=== PATIENT | male | born 1945 | race Caucasian/White ===

== ENCOUNTER 2018-01-22 11:08 | Inpatient (IN) ==
[2018-01-22] MEDS ORDERED: Morphine Sulfate Inj 2 MG/ML Vial IV.PUSH ONE (12:11)
[2018-01-22 12:46] LABS: Baso % (Auto) 0.3 % (0.0-2.0); Eos # (Auto) 0.1 th/mm3 (0.0-0.4); Eos % (Auto) 2.6 % (0.0-4.0); Hematocrit 44.8 % (39.0-51.0); Lymph # (Auto) 1.9 th/mm3 (1.0-4.8); Mean Corpuscular HGB Conc 35.7 % (32.0-36.0); Mean Corpuscular Hemoglobin 34.1 pg (27.0-34.0); Mean Corpuscular Volume 95.7 fL (80.0-100.0); Mean Platelet Volume 9.1 fL (7.0-11.0); Mono # (Auto) 0.8 th/mm3 (0.0-0.9); Mono % (Auto) 15.1 % (0.0-8.0); Neut # (Auto) 2.2 th/mm3 (1.8-7.7); Platelet Count 188 th/mm3 (150-450); Red Blood Count 4.68 mil/mm3 (4.50-5.90); Red Cell Distribution Width 12.1 % (11.6-17.2)
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
[2018-01-22 12:54] LABS: Prothrombin Time 10.5 sec (9.8-11.6)
--- NOTE | 2018-01-22 13:01 | XR ---
EXAM DATE: 01/22/2018 11:32 AM EDT AGE/SEX: 72 years / Male INDICATIONS: Left side chest pain. CLINICAL DATA: This is the patient's initial encounter. Patient reports that signs and symptoms have been present for 1 day and indicates a pain score of 4/10. MEDICAL/SURGICAL HISTORY: None. None. COMPARISON: No prior exams available for comparison. FINDINGS: There is fracture of the left fifth posterior rib which is minimally distracted. No destructive lesio ns or areas of periosteal thickening are seen. Expiratory view of the chest is negative for pneumoth orax. The mediastinal structures are midline. CONCLUSION: Minimally distracted fracture of left posterior fifth rib. Electronically signed by: Yonas Montiel MD 01/22/2018 12:59 PM EDT
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
[2018-01-22 13:07] LABS: Calcium 8.9 mg/dL (8.5-10.1); Carbon Dioxide 28.1 meq/L (21.0-32.0); Potassium 3.7 meq/L (3.5-5.1)
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
[2018-01-22] MEDS ORDERED: Morphine Sulfate Inj 2 MG/ML Vial IV.PUSH PRN (16:00)
[2018-01-22] MEDS ORDERED: Lidocaine 5% Patch T-DERMAL SCH (16:00)
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
[2018-01-22] MEDS ORDERED: ceFAZolin 2 GM Premix Inj 2 GM/50 ML PIGGYBACK IV.SIG ONE (17:34)
[2018-01-22] MEDS ORDERED: Glycopyrrolate Inj 1 MG/5 ML Syringe IV.PUSH ONE (17:51)
[2018-01-22] MEDS ORDERED: Lidocaine PF 1% Inj 5 ML Syringe OTHER ONE (17:51)
[2018-01-22] MEDS ORDERED: Neostigmine Inj 5 MG/5 ML Syringe IV.PUSH ONE (17:51)
[2018-01-22] MEDS ORDERED: *Meperidine Inj 25 MG/ML Vial PERIprocedural Use ONLY ONE (19:30)
[2018-01-22] MEDS ORDERED: Morphine Inj 4 MG/ML Vial ONE (19:34)
[2018-01-22] MEDS ORDERED: fentaNYL Citrate Inj 100 MCG/2 ML Ampul ONE ×2 (19:34)
--- NOTE | 2018-01-22 19:36 | P.BOP ---
- Preoperative Diagnosis (1) Tibial plateau fracture, left Date of procedure: 01/22/18 Procedure: spanning external fixation left tibia fracture Implants: synthes Anesthesia: GETA Surgeon: Bushra Casey MD Estimated blood loss (mL): 20 Pathology: none sent Condition: stable Disposition: PACU
[2018-01-22] MEDS: Sod Chloride 0.9% Inj 1,000 ML IV.CONT SCH (20:00)
[2018-01-22] MEDS: Lidocaine 5% Patch T-DERMAL SCH (20:32)
[2018-01-22] MEDS: Methocarbamol 500 MG Tablet PO SCH (20:33)
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
[2018-01-22] MEDS: Famotidine 20 MG Tablet PO SCH (22:24)
[2018-01-22] MEDS: Docusate Sodium 100 MG Capsule PO SCH (22:24)
[2018-01-23] MEDS: Methocarbamol 500 MG Tablet PO SCH ×3 (01:59→17:10)
[2018-01-23] MEDS: Sod Chloride 0.9% Inj 1,000 ML IV.CONT SCH (03:40)
[2018-01-23] MEDS ORDERED: Chlorhexidine Gluconate 2% 1 Pack (2 Cloths) TOPICAL PRN (04:00)
[2018-01-23] MEDS ORDERED: Chlorhexidine Gluconate 2% 1 Pack (2 Cloths) TOPICAL SCH (04:00)
[2018-01-23 04:37] LABS: Baso % (Auto) 0.1 % (0.0-2.0); Hematocrit 38.2 % (39.0-51.0); Hemoglobin 13.1 gm/dL (13.0-17.0); Lymph # (Auto) 0.5 th/mm3 (1.0-4.8); Mean Corpuscular HGB Conc 34.4 % (32.0-36.0); Mean Corpuscular Hemoglobin 33.5 pg (27.0-34.0); Mean Corpuscular Volume 97.3 fL (80.0-100.0); Mean Platelet Volume 9.2 fL (7.0-11.0); Mono # (Auto) 0.7 th/mm3 (0.0-0.9); Neut # (Auto) 7.2 th/mm3 (1.8-7.7); Neut % (Auto) 85.9 % (16.0-70.0); Platelet Count 188 th/mm3 (150-450); Red Blood Count 3.93 mil/mm3 (4.50-5.90); Red Cell Distribution Width 12.7 % (11.6-17.2); White Blood Count 8.4 th/mm3 (4.0-11.0)
[2018-01-23 05:28] LABS: ABG PCO2 38 mmHg (38-42); ABG PO2 74 mmHg (61-120)
--- NOTE | 2018-01-23 06:16 | XR ---
EXAM DATE: 01/23/2018 6:00 AM EDT AGE/SEX: 72 years / Male INDICATIONS: Follow up trauma, pain left chest and ribs CLINICAL DATA: This is the patient's initial encounter. Patient reports that signs and symptoms have been present for 2 days and indicates a pain score of 4/10. MEDICAL/SURGICAL HISTORY: . left 5th rib fracture, tib/fib fracture Non-responsive. COMPARISON: No prior exams available for comparison. FINDINGS: The heart size is normal. There is minimal increased density at the left base. The right lung is sara r. There appears to be very minimal left pneumothorax measuring up to 5 mm in thickness. Mediastinal shift is not seen. There is a fifth left rib fracture. Left-sided rib fractures are seen. CONCLUSION: Minimal left pneumothorax. Minimal consolidation/contusion or atelectasis at the left base. Fifth left rib fracture.. Electronically signed by: Mekhi Schmid MD 01/23/2018 6:15 AM EDT
--- NOTE | 2018-01-23 06:41 | P.PNOP ---
Subjective Interval history: POD 1 s/p exfix left bicondylar tibial plateau doing well. pain controlled. no complaints. Physical Exam Vital signs: Vital Signs 01/22/18 13:12 01/22/18 15:41 01/22/18 15:56 Temperature 97.8 F Pulse Rate 70 73 75 Respiratory Rate 17 16 21 Blood Pressure 154/81 H 98/62 L 123/68 Pulse Oximetry 98 96 97 01/22/18 19:25 01/22/18 19:45 01/22/18 20:00 Temperature 98.4 F 97.9 F Pulse Rate 85 93 H 89 Respiratory Rate 16 16 18 Blood Pressure 135/65 148/71 H 147/77 H Pulse Oximetry 94 L 95 93 L 01/22/18 20:15 01/22/18 20:30 01/23/18 00:00 Temperature 98.3 F 97.7 F Pulse Rate 87 89 103 H Respiratory Rate 14 16 18 Blood Pressure 145/76 H 129/72 130/64 Pulse Oximetry 95 95 96 01/23/18 04:00 Temperature 98.8 F Pulse Rate 97 H Respiratory Rate 17 Blood Pressure 130/62 Pulse Oximetry 95 Intake & Output 01/22/18 01/22/18 01/23/18 06:59 18:59 06:59 Intake Total 1880 / 1880 Output Total Balance 1860 / 1860 Weight 95.254 kg 95 kg Intake: Oral 480 / 480 Anesthesia Amount 1400 / 1400 Output: Estimated Blood Loss Other: # Voids 400 Narrative: LLE: 3+ swelling of lower leg. +exfix. pin sites clean. nvi distally with strong dorsiflexion. Results - Labs CBC & Chem 7: 01/23/18 03:40 01/22/18 12:20 Laboratory Results - last 24 hr 01/22/18 01/22/18 01/22/18 12:20 12:20 12:20 WBC 5.0 RBC 4.68 Hgb 16.0 Hct 44.8 MCV 95.7 MCH 34.1 H MCHC 35.7 RDW 12.1 Plt Count 188 MPV 9.1 Neut % (Auto) 44.0 Lymph % (Auto) 38.0 Otero % (Auto) 15.1 H Eos % (Auto) 2.6 Baso % (Auto) 0.3 Neut # (Auto) 2.2 Lymph # (Auto) 1.9 Otero # (Auto) 0.8 Eos # (Auto) 0.1 Baso # (Auto) 0.0 WBC Differential . Differential Comment Auto diff final PT 10.5 INR 1.0 APTT 24.0 L Puncture Site Patient Temperature O2 Saturation ABG pH ABG pCO2 ABG pO2 ABG HCO3 ABG O2 Content ABG Base Excess ABG Methemoglobin Jesús Test Hemoglobin Carboxyhemoglobin O2 Delivery Device Liter Flow Critical Value Sodium 141 Potassium 3.7 Chloride 106 Carbon Dioxide 28.1 Anion Gap 7 BUN 22 H Creatinine 0.90 Estimated GFR 83 L Random Glucose 83 Calcium 8.9 01/23/18 01/23/18 03:40 05:10 WBC 8.4 D RBC 3.93 L Hgb 13.1 D Hct 38.2 L MCV 97.3 MCH 33.5 MCHC 34.4 RDW 12.7 Plt Count 188 MPV 9.2 Neut % (Auto) 85.9 H Lymph % (Auto) 6.0 L Otero % (Auto) 8.0 Eos % (Auto) 0.0 Baso % (Auto) 0.1 Neut # (Auto) 7.2 Lymph # (Auto) 0.5 L Otero # (Auto) 0.7 Eos # (Auto) 0.0 Baso # (Auto) 0.0 WBC Differential . Differential Comment Auto diff final PT INR APTT Puncture Site Right radial Patient Temperature 98.6 O2 Saturation 94 ABG pH 7.43 H ABG pCO2 38 ABG pO2 74 ABG HCO3 25 ABG O2 Content 16.6 ABG Base Excess 1.0 ABG Methemoglobin 0.6 Jesús Test Present Hemoglobin 12.6 Carboxyhemoglobin 1.6 O2 Delivery Device Nasal cannula Liter Flow 1.00 Critical Value No Sodium Potassium Chloride Carbon Dioxide Anion Gap BUN Creatinine Estimated GFR Random Glucose Calcium - Imaging Impressions Knee X-Ray 01/22/18 11:32 CONCLUSION: Moderately comminuted fracture of the proximal tibia. Ribs X-Ray 01/22/18 11:32 CONCLUSION: Minimally distracted fracture of left posterior fifth rib. Femur X-Ray 01/22/18 12:10 CONCLUSION: 1. Partially imaged severely comminuted fracture of the tibial plateau. 2. Femur is intact. Tibia/Fibula X-Ray 01/22/18 12:10 CONCLUSION: Moderately comminuted fracture of the proximal tibia again noted. Knee CT 01/22/18 14:55 CONCLUSION: 1. Moderate to severely comminuted proximal tibial fracture especially medially with a lipohemarthrosis. A tiny locule of air is also present within the knee joint. Pelvis X-Ray 01/22/18 15:33 CONCLUSION: 1. No acute fracture. Chest X-Ray 01/23/18 06:00 CONCLUSION: Minimal left pneumothorax. Minimal consolidation/contusion or atelectasis at the left base. Fifth left rib fracture.. Assessment and Plan - Problem List (1) Tibial plateau fracture, left Code(s): S82.142A - Displaced bicondylar fracture of left tibia, initial encounter for closed fracture Status: Acute - Assessment and Plan 1) left bicondylar Tibial Plateau Fx s/p exfix - POD 1 -NWB -elevate -ice -toradol 15mg Q8H x 6 doses for swelling -pin care BID -will plan for surgery once swelling appropriate with Dr Irizarry
--- NOTE | 2018-01-23 06:59 | XR ---
EXAM DATE: 01/22/2018 12:00 AM EDT AGE/SEX: 72 years / Male INDICATIONS: External fixator. CLINICAL DATA: This is the patient's initial encounter. Patient reports that signs and symptoms have been present for 1 day and indicates a pain score of Nonresponsive. MEDICAL/SURGICAL HISTORY: None. None. [place] [facility] [place]. . FINDINGS: Multiple fluoroscopic images demonstrate external fixation off severely comminuted tibial plateau fra cture. CONCLUSION: 1. External fixation of severely comminuted tibial plateau fracture. Electronically signed by: Handy Vargas MD 01/23/2018 6:58 AM EDT
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
[2018-01-23] MEDS: Lidocaine 5% Patch T-DERMAL SCH (08:37)
[2018-01-23] MEDS: Ketorolac Inj 30 MG/ML (IVP) Vial IV.PUSH SCH ×3 (08:39→23:32)
[2018-01-23] MEDS: dilTIAZem CD 180 MG Capsule PO SCH (08:39)
[2018-01-23] MEDS: Famotidine 20 MG Tablet PO SCH ×2 (08:39→23:32)
[2018-01-23] MEDS: Docusate Sodium 100 MG Capsule PO SCH ×2 (08:39→23:31)
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
[2018-01-24] MEDS: Methocarbamol 500 MG Tablet PO SCH ×3 (01:13→18:07)
--- NOTE | 2018-01-24 06:24 | XR ---
EXAM DATE: 01/24/2018 6:00 AM EDT AGE/SEX: 72 years / Male INDICATIONS: Follow up trauma, pain left chest and ribs, feels slightly congested CLINICAL DATA: This is the patient's subsequent encounter. Patient reports that signs and symptoms h ave been present for 3 days and indicates a pain score of 4/10. MEDICAL/SURGICAL HISTORY: . left rib fracture, left tib/fib fracture None. COMPARISON: [place], CHEST 1V SINGLE AP, 01/23/2018. . FINDINGS: There is a persistent small left pneumothorax. There is increased density at the bases being worse on the left. The heart size is within normal limits. Left-sided rib fractures are seen. CONCLUSION: Persistent small left pneumothorax. Bibasilar areas of consolidation/atelectasis/contusion at the lung bases being worse on the left. The se findings have worsened since the prior exam. Left-sided rib fractures. Electronically signed by: Mekhi Schmid MD 01/24/2018 6:23 AM EDT
--- NOTE | 2018-01-24 06:37 | P.PNOP ---
Subjective Interval history: s/p exfix left tibial plateau doing well. no changes. Physical Exam Vital signs: Vital Signs 01/23/18 08:00 01/23/18 10:47 01/23/18 12:00 Temperature 97.8 F 98.1 F Pulse Rate 78 76 Respiratory Rate 20 20 Blood Pressure 132/61 126/58 L Pulse Oximetry 95 98 94 L 01/23/18 16:00 01/23/18 18:18 01/23/18 18:19 Temperature 97.9 F Pulse Rate 74 Respiratory Rate 18 16 16 Blood Pressure 105/52 L Pulse Oximetry 93 L 01/23/18 20:00 01/24/18 00:00 01/24/18 03:30 Temperature 98.0 F 97.9 F Pulse Rate 90 80 Respiratory Rate 18 18 18 Blood Pressure 137/62 137/65 Pulse Oximetry 95 94 L 01/24/18 04:00 Temperature 98.5 F Pulse Rate 73 Respiratory Rate 17 Blood Pressure 108/55 L Pulse Oximetry 93 L Intake & Output 01/23/18 01/23/18 01/24/18 06:59 18:59 06:59 Intake Total 1880 / 1880 1380 / 1380 Output Total 20 551 / 551 600 / 600 Balance 1860 / 1860 829 / 829 -600 / -600 Weight 95 kg 95 kg Intake: IV 150 / 150 NS Inj 1,000 ML @ 100 mls/hr IV 100 / 100 .CONT .Q10H [facility] Rx#:[id number] Oral 480 / 480 1230 / 1230 Anesthesia Amount 1400 / 1400 Output: Urine 550 / 550 600 / 600 Urine/Stool Mix / Estimated Blood Loss Other: # Voids 400 3 Narrative: LLE: 3+ swelling of lower leg. compartments soft. +exfix. nvi Results - Labs CBC & Chem 7: 01/23/18 03:40 01/22/18 12:20 - Imaging Impressions Knee X-Ray 01/22/18 00:00 CONCLUSION: 1. External fixation of severely comminuted tibial plateau fracture. Chest X-Ray 01/24/18 06:00 CONCLUSION: Persistent small left pneumothorax. Bibasilar areas of consolidation/atelectasis/contusion at the lung bases being worse on the left. These findings have worsened since the prior exam. Left-sided rib fractures. Assessment and Plan - Problem List (1) Tibial plateau fracture, left Code(s): S82.142A - Displaced bicondylar fracture of left tibia, initial encounter for closed fracture Status: Acute - Assessment and Plan 1) left bicondylar Tibial Plateau Fx s/p exfix - POD 2 -NWB -elevate -ice -toradol -pin care BID -will plan for surgery once swelling appropriate with Dr Irizarry -could potentially be by end of week but will likely be next week before ready. will monitor day to day
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
[2018-01-24] MEDS: dilTIAZem CD 180 MG Capsule PO SCH (09:09)
[2018-01-24] MEDS: Famotidine 20 MG Tablet PO SCH ×2 (09:09→20:43)
[2018-01-24] MEDS: Docusate Sodium 100 MG Capsule PO SCH ×2 (09:09→20:43)
[2018-01-24] MEDS: Lidocaine 5% Patch T-DERMAL SCH (09:09)
[2018-01-24] MEDS: Ketorolac Inj 30 MG/ML (IVP) Vial IV.PUSH SCH ×3 (09:10→23:24)
[2018-01-24] MEDS: Enoxaparin Inj 40 MG/0.4 ML Syringe SQ SCH (09:10)
[2018-01-25] MEDS: Methocarbamol 500 MG Tablet PO SCH ×3 (01:22→19:56)
--- NOTE | 2018-01-25 07:50 | P.PNOP ---
Subjective Interval history: Pain controlled resting comfortably Physical Exam Vital signs: Vital Signs 01/24/18 08:00 01/24/18 12:00 01/24/18 16:00 Temperature 97.9 F 97.7 F 97.9 F Pulse Rate 73 78 78 Respiratory Rate 19 18 18 Blood Pressure 117/58 L 115/63 110/56 L Pulse Oximetry 97 96 96 01/24/18 19:59 01/24/18 20:00 01/24/18 23:22 Temperature 98.1 F 98.4 F Pulse Rate 81 81 Respiratory Rate 18 18 Blood Pressure 130/62 121/59 L Pulse Oximetry 95 95 94 L Intake & Output 01/24/18 01/25/18 01/25/18 18:59 06:59 18:59 Intake Total 600 / 600 360 / 360 Output Total 500 / 500 225 / 225 Balance 100 / 100 135 / 135 Weight 95 kg Intake: Oral 600 / 600 360 / 360 Output: Urine 500 / 500 225 / 225 Other: # Voids 2 # Bowel Movements 0 Narrative: Left lower extremity: External fixator in place. Continued swelling of +3. Compartments semi-soft. Intact sensation distally with active dorsiflexion plantar flexion of foot Results - Labs CBC & Chem 7: 01/23/18 03:40 01/22/18 12:20 Assessment and Plan - Problem List (1) Tibial plateau fracture, left Code(s): S82.142A - Displaced bicondylar fracture of left tibia, initial encounter for closed fracture Status: Acute - Assessment and Plan 1) left bicondylar Tibial Plateau Fx s/p exfix - POD 3 -NWB -elevate -ice -toradol -pin care BID -will plan for surgery once swelling appropriate with Dr Irizarry -could potentially be by end of week but will likely be next week before ready. will monitor day to day
[2018-01-25] MEDS: Senna/Docusate Sodium 8.6/50 MG Tablet PO SCH ×2 (09:58→21:12)
[2018-01-25] MEDS: Famotidine 20 MG Tablet PO SCH ×2 (09:58→21:12)
[2018-01-25] MEDS: dilTIAZem CD 180 MG Capsule PO SCH (09:58)
[2018-01-25] MEDS: Enoxaparin Inj 40 MG/0.4 ML Syringe SQ SCH (09:58)
[2018-01-25] MEDS: Lidocaine 5% Patch T-DERMAL SCH (09:59)
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
[2018-01-25] MEDS: Enoxaparin Inj 30 MG/0.3 ML Syringe SQ SCH (21:13)
[2018-01-26] MEDS: Methocarbamol 500 MG Tablet PO SCH ×3 (01:22→18:45)
[2018-01-26 04:52] LABS: Baso % (Auto) 0.3 % (0.0-2.0); Eos # (Auto) 0.1 th/mm3 (0.0-0.4); Eos % (Auto) 1.7 % (0.0-4.0); Hematocrit 30.1 % (39.0-51.0); Hemoglobin 10.2 gm/dL (13.0-17.0); Lymph # (Auto) 1.2 th/mm3 (1.0-4.8); Lymph % (Auto) 16.5 % (9.0-44.0); Mean Corpuscular Hemoglobin 33.2 pg (27.0-34.0); Mean Corpuscular Volume 97.8 fL (80.0-100.0); Mean Platelet Volume 8.4 fL (7.0-11.0); Mono # (Auto) 0.9 th/mm3 (0.0-0.9); Mono % (Auto) 11.4 % (0.0-8.0); Neut # (Auto) 5.3 th/mm3 (1.8-7.7); Neut % (Auto) 70.1 % (16.0-70.0); Platelet Count 176 th/mm3 (150-450); Red Blood Count 3.08 mil/mm3 (4.50-5.90); Red Cell Distribution Width 12.3 % (11.6-17.2); White Blood Count 7.5 th/mm3 (4.0-11.0)
[2018-01-26 05:13] LABS: Anion Gap 6 meq/L (5-15); Blood Urea Nitrogen 18 mg/dL (7-18); Calcium 7.7 mg/dL (8.5-10.1); Carbon Dioxide 28.2 meq/L (21.0-32.0); Chloride 103 meq/L (98-107); Glomerular Filtration Rate Greater Than 89 mL/min (>89); Glucose,Random 111 mg/dL (74-106); Potassium 4.1 meq/L (3.5-5.1); Sodium 137 meq/L (136-145)
--- NOTE | 2018-01-26 06:33 | P.PNOP ---
Subjective Interval history: s/p exfix left tibial plateau doing well. no changes Physical Exam Vital signs: Vital Signs 01/25/18 08:00 01/25/18 12:00 01/25/18 19:33 Temperature 98.2 F 97.8 F 98.0 F Pulse Rate 74 86 76 Respiratory Rate 18 18 18 Blood Pressure 127/68 117/61 122/65 Pulse Oximetry 97 95 97 01/26/18 00:28 Temperature 98.7 F Pulse Rate 78 Respiratory Rate 18 Blood Pressure 117/62 Pulse Oximetry 96 Intake & Output 01/25/18 01/25/18 01/26/18 06:59 18:59 06:59 Intake Total 360 / 360 840 / 840 480 / 480 Output Total 225 / 225 925 / 925 Balance 135 / 135 -85 / -85 480 / 480 Weight 95 kg 95 kg Intake: Oral 360 / 360 840 / 840 480 / 480 Output: Urine 225 / 225 925 / 925 Other: # Voids 2 550 Date of Last Bowel Movement 01/22/18 01/22/18 # Bowel Movements 0 0 0 Narrative: LLE: +exfix. pin sites clean. 2+swelling of lower leg. compartments soft. nvi Results - Labs CBC & Chem 7: 01/26/18 04:24 01/26/18 04:29 Laboratory Results - last 24 hr 01/26/18 01/26/18 04:24 04:29 WBC 7.5 RBC 3.08 L Hgb 10.2 L Hct 30.1 L MCV 97.8 MCH 33.2 MCHC 34.0 RDW 12.3 Plt Count 176 MPV 8.4 Neut % (Auto) 70.1 H Lymph % (Auto) 16.5 Coffey % (Auto) 11.4 H Eos % (Auto) 1.7 Baso % (Auto) 0.3 Neut # (Auto) 5.3 Lymph # (Auto) 1.2 Coffey # (Auto) 0.9 Eos # (Auto) 0.1 Baso # (Auto) 0.0 WBC Differential . Differential Comment Auto diff final Sodium 137 Potassium 4.1 Chloride 103 Carbon Dioxide 28.2 Anion Gap 6 BUN 18 Creatinine 0.79 Estimated GFR Greater than 89 Random Glucose 111 H Calcium 7.7 L - Imaging Impressions Chest X-Ray 01/25/18 06:00 CONCLUSION: 1. The previously noted small left apical pneumothorax appears to be resolved. 2. No significant change in the bibasilar infiltrates. Assessment and Plan - Problem List (1) Tibial plateau fracture, left Code(s): S82.142A - Displaced bicondylar fracture of left tibia, initial encounter for closed fracture Status: Acute - Assessment and Plan 1) left bicondylar Tibial Plateau Fx s/p exfix - POD 4 -NWB -elevate -ice -toradol Q8H x 6 doses -pin care BID -will plan for surgery once swelling appropriate with Dr Irizarry -swelling will not be appropriate til at least next week.
[2018-01-26] MEDS: Ketorolac Inj 30 MG/ML (IVP) Vial IV.PUSH SCH ×3 (06:47→21:47)
[2018-01-26] MEDS ORDERED: Magnesium Citrate Liq 300 ML Bottle PO ONE (06:57)
[2018-01-26] MEDS: Famotidine 20 MG Tablet PO SCH ×2 (09:32→21:48)
[2018-01-26] MEDS: dilTIAZem CD 180 MG Capsule PO SCH (09:32)
[2018-01-26] MEDS: Lidocaine 5% Patch T-DERMAL SCH (09:32)
[2018-01-26] MEDS: Enoxaparin Inj 30 MG/0.3 ML Syringe SQ SCH ×2 (09:32→21:48)
[2018-01-26] MEDS: Senna/Docusate Sodium 8.6/50 MG Tablet PO SCH ×2 (10:26→21:49)
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
[2018-01-27] MEDS: Methocarbamol 500 MG Tablet PO SCH ×3 (01:48→17:09)
[2018-01-27] MEDS: Ketorolac Inj 30 MG/ML (IVP) Vial IV.PUSH SCH ×3 (06:32→23:00)
[2018-01-27] MEDS: dilTIAZem CD 180 MG Capsule PO SCH (10:37)
[2018-01-27] MEDS: Senna/Docusate Sodium 8.6/50 MG Tablet PO SCH ×2 (10:38→21:18)
[2018-01-27] MEDS: Lidocaine 5% Patch T-DERMAL SCH (10:38)
[2018-01-27] MEDS: Enoxaparin Inj 30 MG/0.3 ML Syringe SQ SCH ×2 (10:38→21:17)
[2018-01-27] MEDS: Famotidine 20 MG Tablet PO SCH ×2 (10:39→21:18)
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
--- NOTE | 2018-01-27 11:08 | P.PNOP ---
Subjective Interval history: Resting comfortably with no new complaints Physical Exam Vital signs: Vital Signs 01/26/18 12:00 01/26/18 16:00 01/26/18 20:25 Temperature 97.5 F L 97.5 F L 98.5 F Pulse Rate 97 H 88 86 Respiratory Rate 18 18 16 Blood Pressure 149/79 H 134/75 125/59 L Pulse Oximetry 95 93 L 94 L 01/27/18 00:15 01/27/18 08:00 Temperature 98.1 F 98.1 F Pulse Rate 80 91 H Respiratory Rate 16 16 Blood Pressure 126/62 141/64 H Pulse Oximetry 94 L 93 L Intake & Output 01/26/18 01/27/18 01/27/18 18:59 06:59 18:59 Intake Total 550 / 550 720 / 720 Output Total 600 / 600 100 / 100 Balance -50 / -50 620 / 620 Weight 95 kg Intake: Oral 550 / 550 720 / 720 Output: Urine 600 / 600 100 / 100 Other: Date of Last Bowel Movement 01/22/18 01/26/18 # Bowel Movements 3 Narrative: Left lower extremity: Clean dry dressings intact. External fixator in place. Swelling of +2 with some improvement. Intact sensation distally with active dorsiflexion and plantarflexion of foot Results - Labs CBC & Chem 7: 01/26/18 04:24 01/26/18 04:29 Assessment and Plan - Problem List (1) Tibial plateau fracture, left Code(s): S82.142A - Displaced bicondylar fracture of left tibia, initial encounter for closed fracture Status: Acute - Assessment and Plan 1) left bicondylar Tibial Plateau Fx s/p exfix - POD 5 -NWB -elevate -ice -pin care BID -will plan for surgery once swelling appropriate with Dr Irizarry -We will make him n.p.o. after midnight Tuesday night and hold Lovenox after Tuesday morning's dose If swelling is continued to improve there is a potential for surgery Tuesday
[2018-01-28] MEDS: Methocarbamol 500 MG Tablet PO SCH ×3 (01:35→19:14)
[2018-01-28] MEDS ORDERED: Chlorhexidine Gluconate 2% 1 Pack (2 Cloths) TOPICAL ONE (03:30)
[2018-01-28] MEDS ORDERED: Sodium Chlor 0.9% Inj 500 ML IV.CONT ONE (03:30)
--- NOTE | 2018-01-28 06:38 | P.DCO ---
- Physical Therapy Order: Evaluate and treat, Improve ambulation, Strength and gait training - Occupational Therapy Order: Evaluate and treat, Improve ADL, Gross motor coordination - Home Health Nursing Order: Medical education, Signs/symptoms of disease process, Medication education-adverse effect, Nursing assessment with vital signs - Case Management Consult Yes - Certification I have seen patient Piter Conner on 01/28/18. My clinical findings support the need for the requested home health care services because: Limited mobility due to disease progression, Deconditioned with increased weakness, Limited ability to care for self, High risk of falls I certify that my clinical findings support that this patient is homebound because: Post-op weakness, Unsteady gait/balance, Unsafe to leave home unassisted
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
[2018-01-28] MEDS: Senna/Docusate Sodium 8.6/50 MG Tablet PO SCH ×2 (08:34→21:42)
[2018-01-28] MEDS: Famotidine 20 MG Tablet PO SCH ×2 (08:34→21:42)
[2018-01-28] MEDS: dilTIAZem CD 180 MG Capsule PO SCH (08:35)
[2018-01-28] MEDS: Lidocaine 5% Patch T-DERMAL SCH (08:35)
[2018-01-28] MEDS: Enoxaparin Inj 30 MG/0.3 ML Syringe SQ SCH ×2 (08:35→21:43)
[2018-01-29] MEDS: Methocarbamol 500 MG Tablet PO SCH ×3 (04:31→18:42)
[2018-01-29] MEDS ORDERED: Acetaminophen 325 MG Tablet PO PRN (06:53)
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
[2018-01-29] MEDS: dilTIAZem CD 180 MG Capsule PO SCH (09:57)
[2018-01-29] MEDS: Lidocaine 5% Patch T-DERMAL SCH (09:57)
[2018-01-29] MEDS: Famotidine 20 MG Tablet PO SCH ×2 (09:57→21:13)
[2018-01-29] MEDS: Senna/Docusate Sodium 8.6/50 MG Tablet PO SCH ×2 (09:58→21:13)
[2018-01-29] MEDS: Enoxaparin Inj 30 MG/0.3 ML Syringe SQ SCH (09:58)
[2018-01-29 11:08] LABS: Baso % (Auto) 0.2 % (0.0-2.0); Eos # (Auto) 0.1 th/mm3 (0.0-0.4); Eos % (Auto) 0.6 % (0.0-4.0); Hematocrit 31.9 % (39.0-51.0); Lymph # (Auto) 0.8 th/mm3 (1.0-4.8); Lymph % (Auto) 8.1 % (9.0-44.0); Mean Corpuscular HGB Conc 34.5 % (32.0-36.0); Mean Corpuscular Hemoglobin 33.5 pg (27.0-34.0); Mean Corpuscular Volume 97.3 fL (80.0-100.0); Mean Platelet Volume 7.4 fL (7.0-11.0); Mono # (Auto) 1.4 th/mm3 (0.0-0.9); Mono % (Auto) 14.2 % (0.0-8.0); Neut # (Auto) 7.7 th/mm3 (1.8-7.7); Neut % (Auto) 76.9 % (16.0-70.0); Platelet Count 273 th/mm3 (150-450); Red Blood Count 3.27 mil/mm3 (4.50-5.90); Red Cell Distribution Width 12.2 % (11.6-17.2)
[2018-01-29 11:25] LABS: Carbon Dioxide 28.1 meq/L (21.0-32.0); Potassium 4.4 meq/L (3.5-5.1)
[2018-01-30] MEDS: Methocarbamol 500 MG Tablet PO SCH ×3 (02:46→18:17)
[2018-01-30] MEDS ORDERED: Metoprolol Tartrate 25 MG Tablet PO ONE (05:50)
[2018-01-30] MEDS ORDERED: Chlorhexidine Gluconate 2% 1 Pack (2 Cloths) TOPICAL ONE (05:50)
--- NOTE | 2018-01-30 06:33 | P.PNOP ---
Subjective Interval history: s/p exfix left knee with left tibial plateau fx doing well. no changes Physical Exam Vital signs: Vital Signs 01/29/18 08:00 01/29/18 12:00 01/29/18 16:00 Temperature 98.8 F 99.6 F 100.9 F H Pulse Rate 92 H 90 89 Respiratory Rate 18 16 16 Blood Pressure 135/70 131/72 118/68 Pulse Oximetry 93 L 95 93 L 01/29/18 20:00 01/30/18 00:00 01/30/18 04:00 Temperature 98.3 F 99.6 F 98.3 F Pulse Rate 87 86 85 Respiratory Rate 18 18 18 Blood Pressure 124/61 123/57 L 136/65 Pulse Oximetry 95 95 95 Intake & Output 01/29/18 01/29/18 01/30/18 06:59 18:59 06:59 Intake Total 320 / 320 0 / 0 Output Total 600 / 600 450 / 450 Balance -280 / -280 -450 / -450 0 / 0 Weight 104.5 kg 103.6 kg Intake: Oral 320 / 320 0 / 0 Output: Urine 600 / 600 450 / 450 Other: # Voids 600 Date of Last Bowel Movement 01/26/18 01/29/18 01/29/18 # Bowel Movements 2 Narrative: LLE: 2+swelling of lower leg. nvi. +exfix Results - Labs CBC & Chem 7: 01/29/18 10:50 01/29/18 10:50 Laboratory Results - last 24 hr 01/29/18 01/29/18 10:50 10:50 WBC 10.0 RBC 3.27 L Hgb 11.0 L Hct 31.9 L MCV 97.3 MCH 33.5 MCHC 34.5 RDW 12.2 Plt Count 273 D MPV 7.4 Neut % (Auto) 76.9 H Lymph % (Auto) 8.1 L [place] % (Auto) 14.2 H Eos % (Auto) 0.6 Baso % (Auto) 0.2 Neut # (Auto) 7.7 Lymph # (Auto) 0.8 L [place] # (Auto) 1.4 H Eos # (Auto) 0.1 Baso # (Auto) 0.0 WBC Differential . Differential Comment Auto diff final Sodium 136 Potassium 4.4 Chloride 101 Carbon Dioxide 28.1 Anion Gap 7 BUN 20 H Creatinine 0.92 Estimated GFR 81 L Random Glucose 97 Calcium 8.0 L - Imaging Impressions Chest X-Ray 01/29/18 08:46 CONCLUSION: Mild bibasilar infiltrates. Assessment and Plan - Problem List (1) Tibial plateau fracture, left Code(s): S82.142A - Displaced bicondylar fracture of left tibia, initial encounter for closed fracture Status: Acute - Assessment and Plan 1) left bicondylar Tibial Plateau Fx s/p exfix - POD 8 -NWB -elevate -ice -pin care BID -will plan for surgery tuesday with Dr Irizarry -restart diet -NPO after MN -one time dose of lovenox -sign consents
[2018-01-30] MEDS ORDERED: Enoxaparin Inj 30 MG/0.3 ML Syringe SQ ONE (07:00)
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
[2018-01-30] MEDS: dilTIAZem CD 180 MG Capsule PO SCH (08:45)
[2018-01-30] MEDS: Senna/Docusate Sodium 8.6/50 MG Tablet PO SCH ×2 (08:46→20:08)
[2018-01-30] MEDS: Lidocaine 5% Patch T-DERMAL SCH (08:47)
[2018-01-30] MEDS: Famotidine 20 MG Tablet PO SCH ×2 (08:47→20:08)
[2018-01-31] MEDS: Methocarbamol 500 MG Tablet PO SCH ×3 (01:20→17:39)
[2018-01-31] MEDS ORDERED: Metoprolol Tartrate 25 MG Tablet PO ONE (04:30)
[2018-01-31] MEDS ORDERED: Chlorhexidine Gluconate 2% 1 Pack (2 Cloths) TOPICAL ONE (04:30)
[2018-01-31] MEDS ORDERED: Sodium Chlor 0.9% Inj 500 ML IV.SIG SCH (05:00)
--- NOTE | 2018-01-31 06:39 | P.PNOP ---
Subjective Interval history: s/p exfix left tibial plateau doing well. no changes Physical Exam Vital signs: Vital Signs 01/30/18 08:00 01/30/18 12:00 01/30/18 16:00 Temperature 98.2 F 98.8 F 98.4 F Pulse Rate 87 87 83 Respiratory Rate 20 20 20 Blood Pressure 136/77 121/73 130/69 Pulse Oximetry 99 95 94 L 01/30/18 20:15 01/31/18 00:05 01/31/18 04:15 Temperature 98.3 F 98.7 F 98.7 F Pulse Rate 91 H 84 83 Respiratory Rate 16 16 17 Blood Pressure 144/77 H 120/63 130/62 Pulse Oximetry 96 95 94 L Intake & Output 01/30/18 01/30/18 01/31/18 06:59 18:59 06:59 Intake Total 0 / 0 720 / 720 600 / 600 Output Total 800 / 800 Balance 0 / 0 720 / 720 -200 / -200 Weight 103.6 kg 103.6 kg Intake: Oral 0 / 0 720 / 720 600 / 600 Output: Urine 800 / 800 Other: Post Void Residual 600 # Voids 600 Date of Last Bowel Movement 01/29/18 01/29/18 01/30/18 # Bowel Movements 0 1 Narrative: LLE: 2+ swelling of leg. nvi. +exfix Results - Labs CBC & Chem 7: 01/29/18 10:50 01/29/18 10:50 Assessment and Plan - Problem List (1) Tibial plateau fracture, left Code(s): S82.142A - Displaced bicondylar fracture of left tibia, initial encounter for closed fracture Status: Acute - Assessment and Plan 1) left bicondylar Tibial Plateau Fx s/p exfix - POD 9 -will plan to proceed with surgery today to fix lateral plateau. if swelling permits intra-op, will fix medial side as well
[2018-01-31] MEDS: Famotidine 20 MG Tablet PO SCH ×2 (08:27→21:00)
[2018-01-31] MEDS: dilTIAZem CD 180 MG Capsule PO SCH (08:27)
[2018-01-31] MEDS: Senna/Docusate Sodium 8.6/50 MG Tablet PO SCH ×2 (08:28→21:00)
[2018-01-31] MEDS: Lidocaine 5% Patch T-DERMAL SCH (08:29)
[2018-01-31] MEDS ORDERED: ceFAZolin 2 GM Premix Inj 2 GM/50 ML PIGGYBACK IV.SIG ONE (09:49)
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
[2018-01-31] MEDS ORDERED: Post-op Orders (for Pharmacy) OTHER STA (13:33)
[2018-01-31] MEDS ORDERED: Morphine Inj 4 MG/ML Vial IV.PUSH PRN (13:33)
--- NOTE | 2018-01-31 13:41 | P.OP ---
- Preoperative Diagnosis (1) Closed bicondylar fracture of left tibial plateau Date of procedure: 01/31/18 Procedure: Open reduction internal fixation left bicondylar tibial plateau fracture, removal of external fixation Anesthesia: GETA Surgeon: Gary Pugh MD Bakery Manager: KENNY Rosenthal PA-C The surgical procedure was assisted by my physician assistant news director. My P.A. presence was necessary throughout this case for the manipulation and positioning of the surgical extremity. My P.A. was assisting me throughout the duration of this procedure. The skill set of a physician assistant news director was medically necessary to complete this procedure. During the surgical case the echocardiography technologist was working at the back table and the physician assistant news director was directly assisting me. Operation and Findings: Implants used: ITS medial plateau plate, Biomet lateral tibial plateau plate Plan of activity: Nonweightbearing, passive range of motion of knee Details of procedure: This patient was seen and evaluated preoperatively. Patient sustained an injury resulting a left bicondylar tibial plateau fracture. Informed consent was obtained preoperatively after detailed discussion of the risks and benefits of surgery. Risk of surgery including bleeding, infection, nonunion, painful hardware, stiffness, loss of motion, arthritis, need for knee replacement, as well as medical complications including blood clots, stroke, heart attack, and were discussed. I also discussed the possibility of using allograft bone graft . Preoperatively the operative site was marked. Patient was brought to the operating room and placed on the operating room table. Intravenous sedation and general endotracheal anesthesia were administered. IV antibiotics were given and a time out procedure was preformed. Procedure began with removal of the external fixator. Clamps were loosened. Bars and clamps were now removed. The pins were left in place. Next,the operative leg was prepped with alcohol followed by Hibiclens and draped in the usual sterile fashion. Attention was now turned towards the medial tibial plateau. A 6 inch incision was made over the posterior medial aspect of the tibial plateau. Saphenous vein was protected. The PES insertion was elevated to expose the posterior medial tibial plateau. Fracture was visualized. Attention was now turned toward reduction. Traction was applied. Fracture was manipulated. Fracture keyed in excellent alignment. A fracture tenaculum was used to compress fracture. K wires were used for provisional fixation. Fluoroscopy confirmed excellent alignment of fracture. An ITS plate was now placed along the posterior medial tibial plateau. Plate was provisionally held to bone with K wires. Fluoroscopy confirmed plate placement. 3.5 cortical screws were used to compress plate to bone. Additional locking screws were placed proximally. Next a 5-inch curvilinear incision over the anterolateral knee. Subcutaneous tissue was treated with Bovie. Iliotibial band was split in line with fibers. A sub-meniscal arthrotomy was created and the lateral articular surface was visualized. There was significant comminution. A window was made in the metaphyseal region and bone tamps used to elevate the articular surface. Articular surface reduced into excellent alignment. K-wires were used for provisional fixation. The cortical fragments were now reduced. Fluoroscopy revealed excellent alignment of fracture. A Biomet proximal tibial plate was selected. The plate was provisionally held with K-wires. 3.5 cortical screws were used compress plate to bone distally, and a periarticular clamp was used to compress the medial and lateral tibial plateau fracture fragments together. Multiple locking screws were now placed proximally. Additional screws were placed in the shaft. K-wires were removed. Final fluoroscopy showed excellent alignment of fracture with well-placed hardware. The incision was thoroughly irrigated. Attention was now returned back to the medial plate. Additional locking screws were placed proximally within the plate. All screws were predrilled and premeasured for appropriate length. Incisions were thoroughly irrigated. Attention was now turned to closure. Fascia and iliotibial band were closed with #1 Vicryl,. Subcutaneous tissues closed with 3-0 Vicryl and skin was closed with albert. Sterile dressings were applied. The patient was transferred to recovery in stable condition.
--- NOTE | 2018-01-31 14:49 | XR ---
EXAM DATE: 01/31/2018 2:46 PM EDT AGE/SEX: 72 years / Male INDICATIONS: ORIF left tibial plateau. CLINICAL DATA: This is the patient's subsequent encounter. Patient reports that signs and symptoms h ave been present for 2 weeks and indicates a pain score of Nonresponsive. MEDICAL/SURGICAL HISTORY: Non-responsive. Non-responsive. [place] [facility] [place] 1/2[place]/22/2018. . FINDINGS: The patient's had a open reduction internal fixation of a comminuted proximal tibial fracture. There appears to be good alignment of the medial and lateral tibial plateau. CONCLUSION: Status post ORIF of proximal tibial comminuted fracture Electronically signed by: Thomas Clarke MD 01/31/2018 2:48 PM EDT
[2018-01-31] MEDS ORDERED: *morphine SULFATE 4 MG/ML PERIprocedure ONLY ONE (15:07)
[2018-01-31] MEDS: Ketorolac Inj 30 MG/ML (IVP) Vial IV.PUSH SCH (15:28)
[2018-01-31] MEDS: Calcium/Vitamin D 250/125 MG Tablet PO SCH (17:39)
[2018-01-31] MEDS: ceFAZolin Inj 2,000 MG in Sodium Chlor 0.9% Inj 80 ML IV.SIG SCH (22:02)
[2018-01-31] MEDS ORDERED: Vancomycin Inj 1 GM/200 ML PIGGYBACK IV.SIG SCH (23:00)
[2018-02-01] MEDS: Ketorolac Inj 30 MG/ML (IVP) Vial IV.PUSH SCH ×3 (00:04→14:58)
[2018-02-01] MEDS: Vancomycin Inj 1,000 MG in Sodium Chlor 0.9% Inj 250 ML IV.SIG SCH ×2 (00:05→09:59)
[2018-02-01] MEDS: Methocarbamol 500 MG Tablet PO SCH ×3 (02:05→17:45)
[2018-02-01 04:12] LABS: Baso % (Auto) 0.1 % (0.0-2.0); Eos % (Auto) 0.1 % (0.0-4.0); Hematocrit 28.1 % (39.0-51.0); Hemoglobin 9.7 gm/dL (13.0-17.0); Lymph # (Auto) 0.9 th/mm3 (1.0-4.8); Lymph % (Auto) 8.8 % (9.0-44.0); Mean Corpuscular HGB Conc 34.4 % (32.0-36.0); Mean Corpuscular Hemoglobin 33.2 pg (27.0-34.0); Mean Corpuscular Volume 96.4 fL (80.0-100.0); Mean Platelet Volume 7.4 fL (7.0-11.0); Mono # (Auto) 1.2 th/mm3 (0.0-0.9); Mono % (Auto) 11.7 % (0.0-8.0); Neut # (Auto) 8.3 th/mm3 (1.8-7.7); Neut % (Auto) 79.3 % (16.0-70.0); Platelet Count 304 th/mm3 (150-450); Red Blood Count 2.92 mil/mm3 (4.50-5.90); Red Cell Distribution Width 12.2 % (11.6-17.2); White Blood Count 10.5 th/mm3 (4.0-11.0)
[2018-02-01 04:29] LABS: Anion Gap 5 meq/L (5-15); Blood Urea Nitrogen 22 mg/dL (7-18); Calcium 7.8 mg/dL (8.5-10.1); Carbon Dioxide 28.2 meq/L (21.0-32.0); Chloride 103 meq/L (98-107); Glomerular Filtration Rate Greater Than 89 mL/min (>89); Glucose,Random 106 mg/dL (74-106); Potassium 4.5 meq/L (3.5-5.1); Sodium 136 meq/L (136-145)
[2018-02-01] MEDS: ceFAZolin Inj 2,000 MG in Sodium Chlor 0.9% Inj 80 ML IV.SIG SCH ×3 (04:40→20:15)
--- NOTE | 2018-02-01 06:43 | P.PNOP ---
Subjective Interval history: Doing well status post surgery POD 1 Physical Exam Vital signs: Vital Signs 01/31/18 08:00 01/31/18 13:55 01/31/18 14:15 Temperature 98.3 F 97.9 F Pulse Rate 86 88 82 Respiratory Rate 18 12 12 Blood Pressure 141/70 H 126/65 133/71 Pulse Oximetry 94 L 92 L 94 L 01/31/18 14:30 01/31/18 15:10 01/31/18 16:00 Temperature 97.2 F L Pulse Rate 75 70 Respiratory Rate 12 14 18 Blood Pressure 154/73 H 141/69 H Pulse Oximetry 95 95 01/31/18 16:26 01/31/18 17:01 01/31/18 19:10 Temperature 97.5 F L Pulse Rate 80 Respiratory Rate 14 18 Blood Pressure 152/80 H Pulse Oximetry 97 97 01/31/18 23:11 02/01/18 03:49 Temperature 97.7 F 97.3 F L Pulse Rate 80 75 Respiratory Rate 18 18 Blood Pressure 140/66 127/60 Pulse Oximetry 98 98 Intake & Output 01/31/18 01/31/18 02/01/18 06:59 18:59 06:59 Intake Total 600 / 600 290 / 290 930 / 930 Output Total 800 / 800 550 / 550 400 / 400 Balance -200 / -200 -260 / -260 530 / 530 Weight 103.6 kg 103.6 kg Intake: IV 50 / 50 450 / 450 Vancomycin Inj 1,000 MG In NS 250 / 250 Inj 250 ML @ 200 mls/hr IV.SIG Q12H OBEY Rx#:[id number] Ancef 2 GM Premix Inj 2 gm In 50 / 50 50 ml @ 0 mls/hr IV.SIG .STK- MED ONE Rx#:[id number] Ancef Inj 2,000 MG In NS Inj 80 200 / 200 ML @ 200 mls/hr IV.SIG Q8H OBEY Rx#:[id number] Oral 600 / 600 240 / 240 480 / 480 Output: Urine 800 / 800 350 / 350 400 / 400 Estimated Blood Loss 200 / 200 Other: # Voids 1 Date of Last Bowel Movement 01/30/18 01/30/18 01/30/18 # Bowel Movements 1 0 Narrative: Left lower extremity: Clean dry dressings intact. Knee immobilizer in place. Compartments semi-soft. Intact sensation distally with active dorsiflexion and plantarflexion of foot Results - Labs CBC & Chem 7: 02/01/18 03:30 02/01/18 03:38 Laboratory Results - last 24 hr 02/01/18 02/01/18 03:30 03:38 WBC 10.5 RBC 2.92 L Hgb 9.7 L Hct 28.1 L MCV 96.4 MCH 33.2 MCHC 34.4 RDW 12.2 Plt Count 304 MPV 7.4 Neut % (Auto) 79.3 H Lymph % (Auto) 8.8 L [place] % (Auto) 11.7 H Eos % (Auto) 0.1 Baso % (Auto) 0.1 Neut # (Auto) 8.3 H Lymph # (Auto) 0.9 L [place] # (Auto) 1.2 H Eos # (Auto) 0.0 Baso # (Auto) 0.0 WBC Differential . Differential Comment Auto diff final Sodium 136 Potassium 4.5 Chloride 103 Carbon Dioxide 28.2 Anion Gap 5 BUN 22 H Creatinine 0.70 Estimated GFR Greater than 89 Random Glucose 106 Calcium 7.8 L - Imaging Impressions Knee X-Ray 01/31/18 00:00 CONCLUSION: Status post ORIF of proximal tibial comminuted fracture Assessment and Plan - Problem List (1) Tibial plateau fracture, left Code(s): S82.142A - Displaced bicondylar fracture of left tibia, initial encounter for closed fracture Status: Acute - Assessment and Plan 1) left bicondylar Tibial Plateau Fx s/p removal external fixation and open reduction internal fixation POD 1 Nonweightbearing left lower extremity with no active leg lifts or quad sets Physical therapy for passive range of motion of the knee CKS at all times except for physical therapy Elevation and ice to decrease swelling Dressing change beginning POD 2 We will assess for possible discharge to rehab tomorrow [facility] Follow-up appointment with Dr. Irizarry or PA in 2 weeks
[2018-02-01] MEDS: Lidocaine 5% Patch T-DERMAL SCH (08:11)
[2018-02-01] MEDS: Famotidine 20 MG Tablet PO SCH ×2 (08:12→20:20)
[2018-02-01] MEDS: dilTIAZem CD 180 MG Capsule PO SCH (08:12)
[2018-02-01] MEDS: Calcium/Vitamin D 250/125 MG Tablet PO SCH ×3 (08:12→17:45)
[2018-02-01] MEDS: Senna/Docusate Sodium 8.6/50 MG Tablet PO SCH ×2 (08:12→20:20)
[2018-02-01] MEDS: Enoxaparin Inj 30 MG/0.3 ML Syringe SQ SCH (12:57)
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
[2018-02-02] MEDS: Vancomycin Inj 1,000 MG in Sodium Chlor 0.9% Inj 250 ML IV.SIG SCH (00:22)
[2018-02-02] MEDS: Enoxaparin Inj 30 MG/0.3 ML Syringe SQ SCH (00:23)
[2018-02-02] MEDS: Methocarbamol 500 MG Tablet PO SCH (02:09)
[2018-02-02] MEDS: ceFAZolin Inj 2,000 MG in Sodium Chlor 0.9% Inj 80 ML IV.SIG SCH (04:15)
--- NOTE | 2018-02-02 06:44 | P.PNOP ---
Subjective Interval history: POD 2 s/p ORIF left bicondylar tibial plateau doing well. pain controlled. no complaints. Physical Exam Vital signs: Vital Signs 02/01/18 07:20 02/01/18 08:00 02/01/18 10:45 Temperature 97.9 F Pulse Rate 82 Respiratory Rate 18 18 Blood Pressure 132/60 Pulse Oximetry 97 96 02/01/18 12:00 02/01/18 15:37 02/01/18 16:00 Temperature 98.2 F 97.3 F L Pulse Rate 89 89 Respiratory Rate 17 18 16 Blood Pressure 131/61 122/74 Pulse Oximetry 97 95 02/01/18 19:40 02/01/18 20:00 02/02/18 00:05 Temperature 98.1 F 98.6 F Pulse Rate 83 89 Respiratory Rate 15 15 16 Blood Pressure 108/60 123/58 L Pulse Oximetry 97 94 L 02/02/18 04:20 Temperature 98.1 F Pulse Rate 85 Respiratory Rate 15 Blood Pressure 123/61 Pulse Oximetry 96 Intake & Output 02/01/18 02/01/18 02/02/18 06:59 18:59 06:59 Intake Total 930 / 930 2050 / 2050 1710 / 1710 Output Total 400 / 400 1000 / 1000 1050 / 1050 Balance 530 / 530 1050 / 1050 660 / 660 Weight 103.6 kg 103.5 kg Intake: IV 450 / 450 1050 / 1050 510 / 510 Vancomycin Inj 1,000 MG In NS 250 / 250 250 / 250 250 / 250 Inj 250 ML @ 200 mls/hr IV.SIG Q12H OBEY Rx#:[id number] Ancef Inj 2,000 MG In NS Inj 80 200 / 200 100 / 100 260 / 260 ML @ 200 mls/hr IV.SIG Q8H OBEY Rx#:[id number] Oral 480 / 480 1000 / 1000 1200 / 1200 Output: Urine 400 / 400 1000 / 1000 1050 / 1050 Other: Date of Last Bowel Movement 01/30/18 01/31/18 01/31/18 # Bowel Movements 0 0 Narrative: LLE: dressings clean and dry. intact. NVI. compartments soft. +CKS Results - Labs CBC & Chem 7: 02/01/18 03:30 02/01/18 03:38 Assessment and Plan - Problem List (1) Tibial plateau fracture, left Code(s): S82.142A - Displaced bicondylar fracture of left tibia, initial encounter for closed fracture Status: Acute - Assessment and Plan 1) left bicondylar Tibial Plateau Fx s/p removal external fixation and open reduction internal fixation POD 2 Nonweightbearing left lower extremity with no active leg lifts or quad sets Physical therapy for passive range of motion of the knee 0-90deg CKS at all times except for physical therapy Elevation and ice to decrease swelling Dressing change daily plan for DC to rehab as soon as arrangements made ortho clear for DC to SNF Follow-up appointment with Dr. Irizarry or PA in 2 weeks [facility] Prescription Drug Monitoring Database has been queried and verified prior to prescribing the controlled substance. Acute pain exception. This patient has normal, predicted, physiological, and time limited response to an adverse mechanical stimulus associated with surgery, trauma, or acute illness as described in my notes. There is a lack of alternative treatment options other than to include the prescribed narcotic treatment for this condition.
[2018-02-02] MEDS: Calcium/Vitamin D 250/125 MG Tablet PO SCH (08:26)
[2018-02-02] MEDS: Famotidine 20 MG Tablet PO SCH (08:26)
[2018-02-02] MEDS: Senna/Docusate Sodium 8.6/50 MG Tablet PO SCH (08:26)
[2018-02-02] MEDS: dilTIAZem CD 180 MG Capsule PO SCH (08:27)
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
== END 2018-02-02 10:17 ==
LOC: NEPC 11:08 → NEDA 15:16 → N06 20:40
PROVIDERS: ADMIT Surgery; ATTEND Surgery